=== PATIENT | male | born 1940 | race Two or more races ===

== ENCOUNTER 2020-04-05 08:09 | Day surgery (SDC) | payer MEDICARE, OTHER, SELFPAY ==
--- NOTE | 2020-04-04 12:53 | EKG12_ITS ---
Test Reason : PREOP Blood Pressure : / mmHG Vent. Rate : 075 BPM Atrial Rate : 075 BPM P-R Int : 176 ms QRS Dur : 090 ms QT Int : 388 ms P-R-T Axes : 076 055 054 degrees QTc Int : 433 ms Normal sinus rhythm Nonspecific ST abnormality Abnormal ECG Confirmed by ALFREDO CINTRON, CHAKA ([id number]), primer expeditor and drier WILFREDO VELASCO ([id number]) on 04/08/2020 2:04:10 PM Referred By: Aleksandr Chester Confirmed By:YUDY FUENTES MD
[2020-04-04 13:39] LABS: International Normalized Ratio 1.2; Partial Thromboplast Time 31.2 Seconds (24.1-36.2); Prothrombin Time (Protime)PT. 14.8 SECONDS (11.7-14.9)
[2020-04-05] VITALS (9 sets, daily range): BP systolic 113–132; BP diastolic 62–81; PULSE 64–91; RESP 16–18; TEMP 36.1–36.7; O2SAT 90–98; BMI 26.7; BMI 30.5
--- NOTE | 2020-04-05 | PROS_PTH ---
PATIENT: DUSTIN HERNANDEZ LOC: [facility] – [place] U#:[id number] AGE/SX: 79/M ROOM: RE04/05/[address]: Dr. Aleksandr Chester MD : [id number] BED: DIS: 04/06/2020 SPEC #: [id number] RECD: 04/05/20 14:10 STATUS: MANJEET REMarcell #: [id number] DANA: 04/05/20 00:[address]: Aleksandr Chester DEPT: SURGICAL PATHOLOGY RECD BY: Dustin Duque ENTERED: 04/08/20 08:16 SP TYPE: TURP OTHR DR: MD Dr. Marly Mcclellan MD Tissues: Prostate, NOS Procedures: Surgery Specimen Level IV HEADER OPERATION: Cysto, TUR prostate, Olympus, laser PRE-OP DIAGNOSIS: BPH with obstruction failed UroLift TISSUE SUBMITTED: Prostate chips and bladder stones MICROSCOPIC DIAGNOSIS Prostate chips and bladder stones, TUR: Benign prostatic hyperplasia, glandular and stromal type. Focal mild chronic inflammation. Fragments of stone, clinically bladder stone and metallic clips (gross only). [email or web address] 04/09/20 COMMENT Please make reference to previous specimen ([id number]) left prostate, base and left prostate, mid with diagnosis of focal high-grade PIN. MICROSCOPIC DESCRIPTION Slides are reviewed. GROSS DESCRIPTION Received is one container labeled with the patient's name and designated prostate chips and bladder stone. The specimen consists of multiple irregular fragments of pink-bautista, rubbery, soft tissue that in aggregate weigh 17.3 gm and measure in aggregate 7 x 7 x 2 cm. Multiple fragments of brownish-black stones are also noted. A few metallic clips are also present. Protective Signal Superintendent tissue is submitted in ten cassettes. The stones are for gross identification only. / [email or web address] 04/08/20 TC:5 CPT: 21028
[2020-04-05] MEDS: Lactated Ringers 1,000 ML 100 ML IV ×2 (08:44→11:00)
[2020-04-05] MEDS: Cefazolin 2 GM in 0.9% Normal Saline 100 ML IV (09:25)
--- NOTE | 2020-04-05 09:46 | HP.PCM_ITS ---
History of Present Illness Date of Admission: 04/05/20 Chief Complaint: BPH with obstruction failed UroLift The patient is a 79 year old male who underwent a UroLift procedure about 2 years ago initially had really good results reported nice strong stream was really happy with the results but then at times can by looks like the tissues growing back he has obstruction difficulty going to the bathroom poor emptying so today we can proceed with a transurethral resection of the prostate and removal of UroLift clips. Past Medical History Allergies No Known Allergies Allergy (Verified 04/05/20 08:22) Home Medications: Ambulatory Orders Medication Instructions Recorded Citalopram Hydrobromide 20 mg PO QHS 04/04/20 [Citalopram HBr] Tamsulosin HCl [Flomax] 0.4 mg PO QHS 04/04/20 Surgical History: no surgical history Smoking Status: Former smoker Tobacco Use: Pipe Review of Systems Constitutional: Denies: Chills, Fever, Weight Change HEENT: Denies: Head Aches, Sinus Congestion, Sinus Drainage Cardiovascular: Denies: Chest Pain, Palpitations Respiratory: Denies: Cough, Shortness of breath at rest, Sputum production Gastrointestinal: Denies: Abdominal Pain, Nausea, Vomiting Genitourinary: Denies: Dysuria Musculoskeletal: Denies: Joint Pain, Joint Tenderness Skin: Denies: Rash, Wounds Neurological: Denies: Numbness, Tingling, Focal weakness Psychiatric: Denies: Anxiety, Depression, Homicidal Ideations, Suicidal Ideations Hematologic/ Lymphatic: Denies: Easy Bruising, Easy Bleeding VTE Information - Inpt Only VTE Present on Admission: No VTE Mechan Device Prophylaxis: SCD's - Physical Exam Vitals/I&O's: Vital Signs Temp Pulse Resp BP Pulse Ox 97.9 F 79 16 132/80 H 97 04/05/20 08:29 04/05/20 08:29 04/05/20 08:29 04/05/20 08:29 04/05/20 08:29 Oxygen Delivery Method Room Air Weight: 79.8 kg Body Mass Index (BMI) 26.7 General: Alert, Oriented x3, Cooperative HEENT: Atraumatic, PERRLA, EOMI, Normocephalic Neck: Supple, No JVD, Negative Carotid Bruits Lungs: Clear to auscultation, Normal air movement Cardiovascular: Regular rate, No murmurs Abdomen: Bowel Sounds Present, Soft, Non Tender Extremities: No edema, Capillary Refill Less than 3 Seconds Skin: No rashes, No breakdown Musculoskeletal: No Tenderness to Palpation of Joints or Extremities Neurological: Cranial nerves II-XII grossly intact Psych/Mental Status: Normal Affect, Appropriate Laboratory Results 04/04/20 12:36: WBC Cancelled, Corrected WBC Cancelled, RBC Cancelled, Hgb Ca ncelled, Hct Cancelled, MCV Cancelled, MCH Cancelled, MCHC Cancelled, RDW Std Deviation Cancelled, RDW Coeff of Rigoberto Cancelled, Plt Count Cancelled, MPV Cancelled, Diff Path Review Cancelled 04/04/20 12:36: PT 14.8, INR 1.2, APTT 31.2 04/04/20 12:36: Total Bilirubin Cancelled, Direct Bilirubin Cancelled, AST Cancelled, ALT Cancelled, Alkaline Phosphatase Cancelled, Total Protein Cancelled, Albumin Cancelled, Globulin Cancelled 04/04/20 13:30: COVID-19 (NICOLA) Negative Current Medications Lactated Ringer's () 1,000 mls @ 100 mls/hr IV .Q10H [facility] Last Admin: 04/05/20 08:44 Dose: 100 mls/hr Documented by: Assessment/Plan Plan to proceed with transurethral resection of the prostate.
[2020-04-05] MEDS: Lubricating Jelly 60 GM Tube 30 GM TOPICAL (09:49)
--- NOTE | 2020-04-05 09:52 | DCINST_ITS ---
Discharge Diet: Light diet - advance as tolerated Discharge Activity: Return to Normal Activity Call your doctor if you observe: Fever of 101 or Higher Instructions: Transurethral Resection of the Prostate (TURP): Home Recovery Allergies/Adverse Reactions: Allergies No Known Allergies Allergy (Verified 04/05/20 08:22) Medications to take at Discharge Citalopram Hydrobromide [Citalopram HBr] 20 mg PO QHS 04/04/20 Tamsulosin HCl [Flomax] 0.4 mg PO QHS 04/04/20 Orders to be completed after discharge: 12 Lead EKG [[facility]] Time Frame: 04/04/20, Facility: [facility], Location: Cardiovascular Services Primary Care Physician: Marly Grady MD [Primary Care Provider] - Test Results: Test results from this visit will be discussed in further detail at your follow- up appointment, if applicable. Please Follow Up With: Aleksandr Chester MD When: in 2 weeks, please call to make an appointment.
--- NOTE | 2020-04-05 11:18 | PCM.OPRPT ---
Report of Operation Date of Procedure: 04/05/20 Pre-Operative Diagnosis: Bladder stones, UroLift foreign object in the bladder, BPH with obstruction Post-Operative Diagnosis: Same Surgery/Procedure Performed:: Removal of UroLift clips, laser of bladder stones and removal of fragments, medium size stone. Transurethral resection of the prostate. Description of Surgical Findings:: 79-year-old male who underwent a UroLift procedure for BPH with obstruction he is failed the procedure, the procedure was done about 2 years ago initially reported some good results but now having more difficulty going to the bathroom more difficulty emptying his bladder. Comes back to the operating room today for transurethral resection of the prostate. Patient was taken back to the operating room at the smooth induction of general anesthesia he was placed supine on the table in the dorsolithotomy position the penis and testicles are prepped and draped in usual fashion. I went into the bladder with a 24 noncontinuous flow resectoscope upon entering the bladder I found that there was large stones about 2.5 cm size in the base of the bladder with any diverticulum. I then proceeded with first the removal of the UroLift implants, use a resectoscope to cut through the implants attachment to the bladder and to the prostate and remove the implants there is a total of 5 implants that were removed. After those were successfully removed and I proceeded with a resection of the prostate the prostate was resected to create a nice wide open channels he can urinate at the conclusion of the resection of the prostate I then went in with the scope and found the stones in the back of the bladder and used the thousand micron laser fiber laser the stone little tiny pieces until all the stones were flushed out the bladder I then continued back of the resection of the prostate create a nice wide open channel that a flow test could get a flow but very minimal flow looked inside there is a little bit of a apical tissue resected again a little bit more of a very carefully optica to close the sphincter the sphincter was intact nice open channel from the verumontanum to the bladder neck really could not do anymore resection so then the bladder was flushed out all the chips and stones and a catheter was placed and continuous irrigation he was taken back to the PACU in good condition. Type of Anesthesia:: General Drains: 3 way conway - Admit VTE Documentation VTE Present on Admission: No VTE Mechan Device Prophylaxis: SCD's
[2020-04-05] MEDS: 0.9% Normal Saline 1,000 ML 75 ML IV (13:43)
[2020-04-05] MEDS: Pantoprazole Sodium 40 MG Tablet PO (13:44)
[2020-04-05] MEDS: Docusate Sodium 100 MG Capsule PO ×2 (13:48→21:15)
[2020-04-05] MEDS: Ciprofloxacin 400 MG/200 ML BAG 200 MG IV (16:17)
[2020-04-05] MEDS: Citalopram 20 MG Tablet PO (21:15)
[2020-04-06 02:15] VITALS: BP 127/66; PULSE 71; RESP 18; TEMP 37.2; O2SAT 93
[2020-04-06] MEDS: Ciprofloxacin 400 MG/200 ML BAG 200 MG IV (04:07)
[2020-04-06] MEDS: 0.9% Normal Saline 1,000 ML 75 ML IV (04:07)
[2020-04-06 06:51] LABS: Hematocrit 41.4 % (40-54); Hemoglobin 13.3 g/dL (13.0-16.5); Mean Corp Hgb Conc 32.1 g/dL (32-36); Mean Corpuscular Hgb 29.8 pg (27.0-32.0); Mean Corpuscular Volume 92.8 fL (80-94); Mean Platelet Vol. 10.3 fl (6.2-12.0); Platelet Count 169 K/mm3 (150-450); RBC Distribution Width CV 13.6 % (11.6-14.6); RBC Distribution Width SD 46.1 fl (35.1-43.9); Red Blood Count 4.46 M/mm3 (4.6-6.2); White Blood Count 12.4 K/mm3 (4.4-11.0)
[2020-04-06 07:03] LABS: Anion Gap 3 (5-15); BUN 9 mg/dL (7-18); Calcium,Total 7.7 mg/dL (8.5-10.1); Chloride 110 mmol/L (98-107); Creatinine, Serum 0.82 mg/dL (0.70-1.30); EST Glomerular Filtration Rate 96 mL/min (>60); Est Glom Filt Rate - Afr Amer 116 mL/min (>60); Estimated Creatinine Clearance 69.51 ml/min; Glucose 98 mg/dL (74-106); Potassium 3.9 mmol/L (3.5-5.1); Sodium Level 141 mmol/L (136-145)
[2020-04-06 08:15] VITALS: BP 124/65; PULSE 71; RESP 16; TEMP 36.4; O2SAT 95
[2020-04-06] MEDS: Docusate Sodium 100 MG Capsule PO (09:29)
[2020-04-06] MEDS: Pantoprazole Sodium 40 MG Tablet PO (09:29)
== END 2020-04-06 14:07 | disposition home or self-care (01) ==
LOC: SDC 08:10 → AC 08:10 → MS3 08:43
PROVIDERS: Anesthesiology; PCP Family Medicine; Referring Provider Urology; Visit Provider Urology
PROC: (CPT 52317; principal; 2020-04-05 10:00)
DX: N21.0 Calculus in bladder (principal); N40.1 Benign prostatic hyperplasia with lower urinary tract symptoms; N13.8 Other obstructive and reflux uropathy; R39.14 Feeling of incomplete bladder emptying; R97.20 Elevated prostate specific antigen [PSA]; R35.1 Nocturia; R23.3 Spontaneous ecchymoses; Z96.0 Presence of urogenital implants; Z87.891 Personal history of nicotine dependence; Z20.828 Contact with and (suspected) exposure to other viral communicable diseases
CPT/HCPCS: 00914; 52317; 52601; 36415; 80048; 85027; 85610; 85730; 87635; 88305; 93005; 94799; 99251; J7030; J7120; G0463; J0744; J2405; U0003